=== PATIENT | female | born 1985 | race Caucasian/White ===

== ENCOUNTER 2016-10-15 15:23 | Emergency (ER) | payer MEDICAID | END 2016-10-15 17:01 | disposition home or self-care (01) | LOC: D.ER 15:23 | DX: S16.1XXA Strain of muscle, fascia and tendon at neck level, initial encounter (principal); V43.52XA Car driver injured in collision with other type car in traffic accident, initial encounter; Y93.89 Activity, other specified; Y92.014 Private driveway to single-family (private) house as the place of occurrence of the external cause ==

== ENCOUNTER → 2017-02-04 11:08 | Outpatient (CLI) | payer MEDICAID | END | disposition home or self-care (01) | LOC: D.MRI 02-02 14:30 | DX: M25.561 Pain in right knee (principal) ==

== ENCOUNTER 2017-02-06 20:18 | Emergency (ER) | payer MEDICAID | END 2017-02-06 22:00 | disposition home or self-care (01) | LOC: D.ER 20:18 | DX: J06.9 Acute upper respiratory infection, unspecified (principal); J20.9 Acute bronchitis, unspecified ==

== ENCOUNTER 2018-01-28 09:09 | Day surgery (SDC) | payer BC ==
[~2018-01-28] VITALS: Ht 167.6 cm; Wt 99.3 kg
[~2018-01-28 09:09] MED LIST: TYLENOL #4 W/CO1 TAB PO; VALIUM10 MG PO
[2018-01-28 09:26] LABS: HEMATOCRIT 41.9 % (36.0-48.0); HEMOGLOBIN 14.3 g/dL (12-16); MCH 29.5 pg (26.0-34.0); MCHC 34.1 g/dL (31.0-37.0); MCV 86.4 fL (80.0-100.0); MEAN PLATELET VOLUME 9.9 fL (7.4-10.4); RBC 4.85 10x6/uL (4.00-5.40); RDW 13.3 % (11.5-14.5); WBC 12.2 10x3/uL (4.8-10.8)
[2018-01-28 10:54] VITALS: BP 124/85; Ht 167.6 cm; Wt 99.3 kg
[2018-01-28 11:26] LABS: HCG URINE NEGATIVE (NEGATIVE)
[2018-01-28] MEDS ORDERED: TORADOL10 MG PO (15:58)
[2018-01-28] MEDS ORDERED: PERCOCET 5-3251 TAB PO (15:58)
--- NOTE | 2018-01-28 18:25 | NUR ---
PATIENT AMBULATING IN ROOM WITH WALKER, STATES "THE PAIN IS BETTER," DRESSED IN PERSONAL CLOTHING. DISCHARGE INSTRUCTIONS REVIEWED WITH PATIENT AND MOTHER. DISCHARGED HOME VIA WHEELCHAIR TO PRIVATE VEHICLE WITH MOTHER
--- NOTE | 2018-01-29 08:30 | OP ---
PATIENT NAME: JOSH DOTY MEDICAL RECORD: [id number] :83 LOCATION:[facility]OPS ADMISSION DATE: SURGEON: NORRIS VIEYRA DO DATE OF OPERATION: 01/28/2018 PROCEDURE PERFORMED: Right knee arthroscopy with patella microfracture and lateral release. 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 INDICATIONS: Ms. Doty is a 32-year-old female who presented to my office complaining of knee pain for quite some time. She tried all manner of physical therapy and conservative management. She ended up getting an MRI, which showed a subchondral cyst in the inferolateral patellar facet. This was concerning due to her young age, she is 32. I told her we could scope it and look at it and maybe get the patella to move a little more to the lateral release and do a microfracture, so if we can get that spot healed in due to her young age. She was okay with that. I told her we try and she would need physical therapy after. She is aware of that and the risk of infection, bleeding, damage to nerve or vessels and need for further surgery. She consented to the procedure. SURGEON: Norris Vieyra DO DESCRIPTION OF PROCEDURE: The patient was taken to the operative suite, laid in supine position, given general anesthetic. She was given a gram of vancomycin due to PENICILLIN ALLERGY AND ROCEPHIN ALLERGY. The right lower extremity was prepped and draped in sterile fashion. At that time, a timeout was performed, everyone was in agreement with the correct side, site, patient and procedure. The procedure then began with flexing of the knee down and establishing a lateral portal. An 11-blade scalpel and a trocar was then entered into the knee. The water was turned on and the suprapatellar pouch was inspected. The lateral riding patella was noted at that time riding laterally on the trochlea really on the lateral femoral condyle. The lateral gutter was inspected. No loose body seen there or in the medial gutter. The knee was then flexed down and the medial compartment was entered and an 18-gauge spinal needle was brought in to establish a portal. The medial portal and an 11 blade scalpel was used to break the skin. The trocar was then entered into the knee. A probe was then entered and the medial meniscus was probed and no tears were seen. The cartilage looked good on the medial femoral condyle and medial tibial plateau. ACL was probed and seen to be in good condition as well and taut. The lateral meniscus was then inspected by [id number] in the leg as well was in good condition. The scope was then switched from the lateral to medial portal and the Micropick was brought in through the lateral portal. After the chondromalacia was cleaned up with a shaver and a microfracture was done with a Micropick and the area was about a 3 x 5 mm area on the lateral patellar facet and this was done, then the lateral release was done with a burner. Any bleeding was coagulated with the burn at that time. The water was turned off and the suction was turned on. Excess fluid removed from the knee at that time and the portal sites were closed with 4-0 Monocryl in an inverted interrupted fashion. The patient was awakened and taken to recovery in stable condition. OPERATIVE REPORT [id number] JOSH DOTY BLOOD LOSS: Minimal. COMPLICATIONS: None. TRANSINT:[id number] Voice Confirmation ID: [id number] DOCUMENT ID: [id number] NORRIS VIEYRA DO at 0830 CC: [id number] DICTATION DATE: 01/28/18 1603 [facility] WET WASH: 01/28/18 2211 [facility] 01/28/18 [id number] [place] [address]
== END 2018-01-28 18:30 | disposition home or self-care (01) ==
LOC: D.OPS 09:09 → D.PAN 13:00 → D.OPS 18:30
PROVIDERS: Anesthesiology; Orthopaedic Surgery
DX: M22.41 Chondromalacia patellae, right knee (principal); M25.861 Other specified joint disorders, right knee; Z01.812 Encounter for preprocedural laboratory examination

== ENCOUNTER 2018-11-23 12:47 | Emergency (ER) | payer MEDICAID ==
[~2018-11-23] VITALS: Ht 167.6 cm; Wt 90.5 kg
[~2018-11-23 12:47] MED LIST changes: +PERCOCET 5-3251 TAB PO; +TORADOL10 MG PO
[2018-11-23 12:51] VITALS: Ht 167.6 cm; Wt 90.5 kg
[2018-11-23] MEDS ORDERED: XANAX1 MG PO (12:53)
[2018-11-23 13:18] LABS: BILIRUBIN NEGATIVE (NEGATIVE); GLUCOSE NEGATIVE (NEGATIVE); KETONE NEGATIVE (NEGATIVE); NITRITE NEGATIVE (NEGATIVE)
[2018-11-23 13:19] LABS: APPEARANCE CLEAR (CLEAR); COLOR YELLOW (YELLOW); PROTEIN NEGATIVE (NEGATIVE); UROBILINOGEN NORMAL (NORMAL)
[2018-11-23 13:21] LABS: BASOPHILS 0.5 % (0-2); EOSINOPHILS 4.3 % (0-7); HEMOGLOBIN 13.7 g/dL (12-16); IMMATURE GRANULOCYTES 0.5 % (0-5); LYMPHOCYTES 25.2 % (15-50); MCH 28.9 pg (26.0-34.0); MCHC 33.4 g/dL (31.0-37.0); MCV 86.5 fL (80.0-100.0); MEAN PLATELET VOLUME 9.9 fL (7.4-10.4); MONOCYTES 9.2 % (2-11); NEUTROPHILS 60.3 % (40-80); PLATELET COUNT 323 10x3/uL (130-400); RBC 4.74 10x6/uL (4.00-5.40); RDW 12.8 % (11.5-14.5); WBC 13.2 10x3/uL (4.8-10.8)
[2018-11-23 13:31] LABS: ALBUMIN 3.7 g/dL (3.4-5.0); ALKALINE PHOSPHATASE 90 U/L (46-116); ALT (SGPT) 37 U/L (10-68); AMYLASE - SERUM 37 U/L (25-115); BILIRUBIN - TOTAL 0.28 mg/dL (0.2-1.3); CALC OSMOLALITY 277 mosm/kg (275-300); CALCIUM 9.1 mg/dL (8.5-10.1); CARBON DIOXIDE 29.1 mmol/L (21.0-32.0); CHLORIDE - SERUM 104 mmol/L (98-107); CREATININE - SERUM 0.8 mg/dL (0.6-1.3); GLUCOSE 87 mg/dL (74-106); LIPASE 122 U/L (73-393); POTASSIUM - SERUM 4.1 mmol/L (3.5-5.1); PROTEIN - SERUM 7.3 g/dL (6.4-8.2); SODIUM 141 mmol/L (136-145); UREA NITROGEN 7 mg/dL (7-18); eGFR NON AFRICAN AMERICAN 87 mL/min (90-120)
[2018-11-23 13:33] LABS: HCG SERUM NEGATIVE (NEGATIVE)
[2018-11-23] MEDS ORDERED: LEVSIN/ANASP0.125 MG PO (16:42)
[2018-11-23] MEDS ORDERED: ZOFRAN ODT4 MG/UDTAB PO (16:46)
[2018-11-23 17:22] VITALS: BP 111/74
== END 2018-11-23 17:16 | disposition home or self-care (01) ==
LOC: D.ER 12:47
PROVIDERS: Family Medicine
DX: R10.9 Unspecified abdominal pain (principal)